=== PATIENT | male | born 1965 | race African-American/Black ===

== ENCOUNTER 2020-11-06 10:22 | Emergency (ER) | payer MEDICAID, OTHER ==
[~2020-11-06] VITALS: Ht 165.1 cm; Wt 79.0 kg
[~2020-11-06 10:22] MED LIST: NAPR250T
[2020-11-06 10:28] VITALS: BP 165/102
[2020-11-06] MEDS ORDERED: METH-375 MT (13:25)
== END 2020-11-06 13:49 | disposition home or self-care (01) ==
LOC: ER 10:22
DX: S86.911A Strain of unspecified muscle(s) and tendon(s) at lower leg level, right leg, initial encounter (principal); I10 Essential (primary) hypertension; Z98.890 Other specified postprocedural states; X58.XXXA Exposure to other specified factors, initial encounter; Y93.89 Activity, other specified; Y92.89 Other specified places as the place of occurrence of the external cause; Y99.8 Other external cause status
CPT/HCPCS: 73502; 73552; 99284